=== PATIENT | female | born 1935 | race Caucasian/White ===

== ENCOUNTER 2016-09-29 05:38 | Inpatient (IN) | payer OTHER ==
[~2016-09-29] VITALS: Ht 160 cm; Wt 80.2 kg
[~2016-09-29 05:38] MED LIST: AMLODIPINE BESYL5 MG PO; ASPIR 8181 M1 PO; BACLOFEN10 MG PO; ENALAPRIL MALEA20 MG PO; FENTANYL1 EAC4 TD; GABAPENTIN300 MG PO; GUMMI BEAR MUL1 EACH PO; IRON325 MG PO; METFORMIN HCL500 M4 PO; METFORMIN HCL500 MG PO; MIRALAX255 GM PO; MYRBETRIQ25 MG PO; OXYCODONE HCL10 MG PO; OXYCODONE HCL15 MG PO; RANITIDINE HCL150 MG PO; RELAFEN500 M1 PO; VASOTEC20 MG PO; ZANTAC150 MG PO
[2016-09-29 06:19] VITALS: BP 157/66
[2016-09-29 06:23] LABS: POINT-OF-CARE METER ID UU14174212
[2016-09-29 09:39] LABS: POINT-OF-CARE METER ID UU13113675
[2016-09-29 11:30] VITALS: BP 158/67
[2016-09-29 16:01] VITALS: BP 152/71
[2016-09-29 16:39] LABS: POINT-OF-CARE METER ID UU13113712
[2016-09-29 20:14] VITALS: BP 156/73
[2016-09-29 21:47] LABS: POINT-OF-CARE METER ID UU13113712
[2016-09-30 00:10] VITALS: BP 164/74
[2016-09-30 04:00] VITALS: BP 138/63
[2016-09-30 05:25] LABS: HEMATOCRIT 37.6 % (36.0-46.0); MCV 92.4 FL (83-99)
[2016-09-30 08:00] VITALS: BP 124/58
[2016-09-30 11:37] VITALS: BP 131/58
[2016-09-30 11:47] LABS: POINT-OF-CARE METER ID UU13113712
[2016-09-30 15:20] VITALS: BP 170/77
[2016-09-30 16:59] LABS: POINT-OF-CARE METER ID UU13113712
[2016-09-30 20:01] VITALS: BP 136/65
[2016-09-30 22:26] LABS: POINT-OF-CARE METER ID UU13113712
[2016-10-01 00:30] VITALS: BP 145/67; BP 162/68
[2016-10-01 04:30] VITALS: BP 111/66
[2016-10-01 04:33] LABS: HEMATOCRIT 34.5 % (36.0-46.0); MCV 91.8 FL (83-99)
[2016-10-01 07:36] LABS: POINT-OF-CARE METER ID UU13113712
[2016-10-01 08:28] VITALS: BP 151/69
[2016-10-01] MEDS ORDERED: BENADRYL25 MG PO (09:34)
[2016-10-01] MEDS ORDERED: TYLENOL REGULA325 MG PO (09:37)
[2016-10-01] MEDS ORDERED: BISACODYL5 MG PO (09:38)
[2016-10-01] MEDS ORDERED: XARELTO10 MG PO (09:38)
[2016-10-01] MEDS ORDERED: HYDROMORPHONE HC4 MG PO (09:38)
[2016-10-01 11:28] LABS: POINT-OF-CARE METER ID UU13113712
[2016-10-01 11:58] VITALS: BP 156/69
[2016-10-01 15:25] VITALS: BP 143/67
[2016-10-01] MEDS ORDERED: DILAUDID4 MG PO (15:32)
== END 2016-10-01 16:31 | disposition home health service (06) | DRG 470 ==
LOC: 2SOUTH 05:38 → 3WEST 11:10 → 2SOUTH 15:27 → 3WEST 10-01 16:31
PROVIDERS: Orthopaedic Surgery
PROC: 0SRB04A Replacement of Left Hip Joint with Ceramic on Polyethylene Synthetic Substitute, Uncemented, Open Approach (ICD-10-PCS; principal; 2016-09-29)
DX: M16.12 Unilateral primary osteoarthritis, left hip (principal); F11.20 Opioid dependence, uncomplicated; M54.16 Radiculopathy, lumbar region; I10 Essential (primary) hypertension; E11.9 Type 2 diabetes mellitus without complications
CPT/HCPCS: 82948; 85014; 85018; 97530 GP; J0131; J0690; J1170; J1815; J7030; J7050; J7120